=== PATIENT | female | born 1990 | race African-American/Black ===

== ENCOUNTER 2017-05-07 17:51 | Emergency (ER) | payer OTHER ==
[~2017-05-07] VITALS: Ht 165.1 cm; Wt 72.0 kg
[2017-05-07 18:16] VITALS: Ht 165.1 cm; Wt 72.0 kg
[2017-05-07] MEDS ORDERED: KETOROLAC 30 MG INJ IV STA (18:55)
--- NOTE | 2017-05-07 19:10 | ERD ---
ER Documentation Chief Complaint Date/Time DATE: 05/07/17 TIME: 19:08 Chief Complaint WALKED IN WITH C/O ABDOMINAL PAIN SINCE LAST NIGHT HPI 26 year old female otherwise healthy comes in with 2 weeks of right upper quadrant pain that is sharp, intermittent, moderate to severe. She states that it is throughout the day, worsened over the last day. Patient states the soreness in her right flank and radiates to the right upper quadrant. She has not had any vaginal bleeding, pelvic pain. She denies fevers, chills, nausea, vomiting or diarrhea. She has not taken anything for pain so far. ROS All systems reviewed and are negative except as per history of present illness. Medications Home Meds Active Scripts Nitrofurantoin Monohyd Macrocr* (Macrobid*) 100 Mg Capsr, 100 MG PO BID for 14 Days, CAP Prov:SYEDA KC PA-C 05/07/17 Hydrocodone/Acetaminophen ([place] 5-325 Tablet) 1 Each Tablet, 1 TAB PO Q6H Y for PAIN, #7 TAB Prov:SYEDA KC PA-C 05/07/17 Ibuprofen* (Motrin*) 600 Mg Tab, 600 MG PO Q6, #30 TAB Prov:SYEDA KC PA-C 05/07/17 Allergies Allergies: Coded Allergies: No Known Allergy (Unverified , 05/07/17) PMhx/Soc Medical and Surgical Hx: pt denies Medical Hx Hx Alcohol Use: Yes Hx Substance Use: No Hx Tobacco Use: No Smoking Status: Never smoker Physical Exam Vitals Vital Signs Date Time Temp Pulse Resp B/P Pulse Ox O2 Delivery O2 Flow Rate FiO2 05/07/17 18:16 98.4 84 18 126/62 98 Physical Exam \General: Anxious appearing, in mild distress due to pain HEENT: Head is normocephalic, atraumatic. No scleral icterus. Neck: Supple. Nontender. Lungs: Clear to auscultation. Normal air movement. Heart: Regular rate and rhythm. S1 and S2 are normal. No murmurs, gallops, or rubs. Abdomen: Soft, mild tenderness in right upper quadrant, negative Cadena sign, nondistended. Bowel sounds are normoactive. No masses, no rebound pain, no McBurney's tenderness. Extremities: No clubbing or cyanosis. Normal pulses. Moving extremities x 4. No weakness. Neurologic: Alert and oriented 3. No focal deficits. Skin: Normal turgor. No rash or lesions. Result Diagram: 05/07/17191405/07/171914 Results 24 hrs Laboratory Tests Test 05/07/17 19:15 05/07/17 21:50 White Blood Count 5.910^3/ul Red Blood Count 4.3310^6/ul Hemoglobin 13.8g/dl Hematocrit 40.5% Mean Corpuscular Volume 93.5fl Mean Corpuscular Hemoglobin 31.9pg Mean Corpuscular Hemoglobin Concent 34.1g/dl Red Cell Distribution Width 12.0% Platelet Count 31903^3/UL Mean Platelet Volume 9.3fl Neutrophils % 41.6% Lymphocytes % 47.7% Monocytes % 9.3% Eosinophils % 1.0% Basophils % 0.2% Nucleated Red Blood Cells % 0.0/100WBC Neutrophils # 2.510^3/ul Lymphocytes # 2.810^3/ul Monocytes # 0.610^3/ul Eosinophils # 0.110^3/ul Basophils # 0.010^3/ul Nucleated Red Blood Cells # 0.010^3/ul Sodium Level 142mmol/L Potassium Level 3.8mmol/L Chloride Level 100mmol/L Carbon Dioxide Level 27mmol/L Anion Gap 19 Blood Urea Nitrogen 11mg/dl Creatinine 0.76mg/dl Glucose Level 83mg/dl Calcium Level 9.5mg/dl Total Bilirubin 0.4mg/dl Direct Bilirubin 0.00mg/dl Indirect Bilirubin 0.4mg/dl Aspartate Amino Transf (AST/SGOT) 16IU/L Alanine Aminotransferase (ALT/SGPT) 25IU/L Alkaline Phosphatase 64IU/L Total Protein 8.5g/dl Albumin 4.3g/dl Globulin 4.20g/dl Albumin/Globulin Ratio 1.02 Lipase 42U/L Urine Color YELLOW Urine Clarity SLIGHTLY CLOUDY Urine pH 6.0 Urine Specific Gray 1.024 Urine Ketones NEGATIVEmg/dL Urine Nitrite NEGATIVEmg/dL Urine Bilirubin NEGATIVEmg/dL Urine Urobilinogen NEGATIVEmg/dL Urine Leukocyte Esterase TRACELeu/ul Urine Microscopic RBC 1/HPF Urine Microscopic WBC 2/HPF Urine Squamous Epithelial Cells FEW/HPF Urine Bacteria FEW/HPF Urine Mucus FEW/HPF Urine Hemoglobin NEGATIVEmg/dL Urine Glucose NEGATIVEmg/dL Urine Total Protein NEGATIVEmg/dl Current Medications Medications (Trade) Dose Ordered Sig/Gus Route PRN Reason Start Time Stop Time Status Last Admin Dose Admin Ketorolac Tromethamine (Toradol) 30 mg ONCE STAT IV 05/07/17 18:55 05/07/17 18:59 DC 05/07/17 19:14 Morphine Sulfate (morphine) 4 mg ONCE STAT IV 05/07/17 20:23 05/07/17 20:24 DC 05/07/17 20:29 Procedures/MDM ED course: Patient had an IV line established, blood and urine seen and she was given Toradol 30 mg IV. She was also given morphine 4 mg IV. The patient's abdominal pain was reexamined. Patient was sitting comfortably with improved pain. Patient was not in any distress. MDM: 26-year-old female presents with abdominal pain and epigastric and right upper quadrant, all workup was negative. Patient was concerned of the mass, CT abdomen pelvis was unremarkable. All labs unremarkable, she does complain of urinary frequency will be treated for urinary tract infection, that is likely mild. There are no signs of pyelonephritis, kidney stones, acute choledocholithiasis, acute cholecystitis or pancreatitis. Departure Diagnosis: Primary Impression: Abdominal pain Condition: Good SYEDA KC PA-C May 07, 2017 19:10
[2017-05-07 19:31] LABS: BASOPHILS % 0.2 % (0.0-2.0); EOSINOPHILS # 0.1 10^3/ul (0.0-0.5); HEMATOCRIT 40.5 % (37.0-47.0); HEMOGLOBIN 13.8 g/dl (12.0-16.0); LYMPHOCYTES # 2.8 10^3/ul (0.8-2.9); LYMPHOCYTES % 47.7 % (15.0-51.0); MEAN CORPUSCULAR HEMOGLOBIN 31.9 pg (29.0-33.0); MEAN CORPUSCULAR HGB CONC 34.1 g/dl (32.0-37.0); MEAN CORPUSCULAR VOLUME 93.5 fl (82.0-101.0); MEAN PLATELET VOLUME 9.3 fl (7.4-10.4); MONOCYTE # 0.6 10^3/ul (0.3-0.9); MONOCYTES % 9.3 % (0.0-11.0); NEUTROPHIL # 2.5 10^3/ul (1.6-7.5); NEUTROPHILS % 41.6 % (39.0-77.0); PLATELET COUNT 295 10^3/UL (140-415); RED BLOOD COUNT 4.33 10^6/ul (4.20-5.40); WHITE BLOOD COUNT 5.9 10^3/ul (4.8-10.8)
[2017-05-07 19:45] LABS: ALBUMIN 4.3 g/dl (3.3-4.9); ALBUMIN/GLOBULIN RATIO 1.02; BILIRUBIN,INDIRECT 0.4 mg/dl (0-1.1); BILIRUBIN,TOTAL 0.4 mg/dl (0.2-1.3); CALCIUM 9.5 mg/dl (8.4-10.2); CREATININE 0.76 mg/dl (0.44-1.00); POTASSIUM 3.8 mmol/L (3.5-5.1); TOTAL PROTEIN 8.5 g/dl (6.1-8.1)
--- NOTE | 2017-05-07 20:20 | RADRPT ---
PROCEDURE: CT Abdomen and Pelvis without contrast. CLINICAL INDICATION: Right upper quadrant and right lower quadrant pain for 2 weeks, worsening tod ay TECHNIQUE: CT scan of the abdomen and pelvis without contrast was performed without intravenous co ntrast. Coronal and sagittal reformatted images were obtained from the axial source images. Images were reviewed on a high-resolution PACS workstation. CTDI 8 mGy, DLP 403 mGy-cm One or more of the following dose reduction techniques were used: Automated exposure control Adjustment of the mA and/or kV according to patient size. Use of iterative reconstruction technique. COMPARISON: None. FINDINGS: There is minimal bibasilar atelectasis. The lung bases are otherwise clear. The heart size is norm al. The aorta and its branches are normal in size and caliber. The kidneys are symmetric in size and density. There is no perinephric fat stranding. There is no ne phroureterolithiasis or hydronephrosis. The visualized ureters are normal in course and caliber alth ough difficult to delineate within the pelvis. Evaluation of solid organs is limited due to the lack of intravenous contrast. However, the liver, g allbladder, spleen, pancreas, and adrenal glands are unremarkable. Evaluation of the gastrointestinal tract is limited due to the lack of oral contrast. The distal es ophagus is unremarkable. The stomach is mostly decompressed and limited in evaluation. The small b owel loops are normal in caliber without evidence of small bowel obstruction. Stool is noted throug hout the colon. A few diverticula are visualized within the descending colon. There is no bowel wa ll thickening or pneumatosis. The appendix is visualized on axial images 108 - 112 and is unremarka ble in appearance. There is no pneumoperitoneum. There is no mesenteric, retroperitoneal, or pelvic lymphadenopathy. The bladder is decompressed. The uterus and adnexa are unremarkable. A small amount of fluid is vi sualized within the posterior pelvis which may be physiologic. There are no acute fractures. Bones and soft tissues are unremarkable. RPTAT: ZZ IMPRESSION: 1. No acute intra-abdominal abnormality. 2. No mass, lymphadenopathy, or focal acute inflammatory process is identified. .Taya Munguia MD, Date Time Electronically viewed and signed by .Taya uMnguia MD, MD on 05/07/2017 20:20 .T/
[2017-05-07] MEDS ORDERED: morphine 4 MG/ML VIAL IV STA (20:23)
[2017-05-07 22:13] LABS: ADD UMIC YES; UR ASCORBIC ACID NEGATIVE (NEGATIVE); UR BACTERIA FEW /HPF (NONE SEEN); UR BILIRUBIN (Dip) NEGATIVE (NEGATIVE); UR BLOOD (Dip) NEGATIVE (NEGATIVE); UR CLARITY SLIGHTLY CLOUDY (CLEAR); UR COLOR YELLOW (YELLOW); UR GLUCOSE (Dip) NEGATIVE (NEGATIVE); UR KETONES (Dip) NEGATIVE (NEGATIVE); UR LEUKOCYTE ESTERASE (Dip) TRACE Leu/ul (NEGATIVE); UR MUCUS FEW /HPF (NONE SEEN); UR NITRITE (Dip) NEGATIVE (NEGATIVE); UR RBC 1 /HPF (0-5); UR SPECIFIC GRAVITY (Dip) 1.024 (1.003-1.030); UR SQUAMOUS EPITHELIAL CELL FEW /HPF (FEW); UR TOTAL PROTEIN (Dip) NEGATIVE (NEGATIVE); UR UROBILINOGEN (Dip) NEGATIVE (NEGATIVE)
[2017-05-07] MEDS ORDERED: HYDR-906 PO (22:29)
[2017-05-07] MEDS ORDERED: IBUP-1542 PO (22:29)
[2017-05-07] MEDS ORDERED: NITR-58 PO (22:29)
== END 2017-05-07 22:52 | disposition home or self-care (01) ==
LOC: FTE 17:51
DX: R10.11 Right upper quadrant pain (principal)
CPT/HCPCS: 36415; 74176; 80053; 81001; 83690; 85025; 96374; 96375; J1885; J2270; Z7502